=== PATIENT | male | born 1960 | race Caucasian/White ===

== ENCOUNTER → 2016-10-09 | Outpatient (CLI) | payer BC ==
[~2016-10-09] MED LIST: CLARITIN10 MG PO; DOXYCYCLINE MO100 MG PO; LIDEX 0.05% CRE15 GM T; MEDROL DOSEPAK4 MG PO; PREDNISONE10 M1 PO; PROVENTIL0.09 MG/AC IH; VICODIN 5/500 505 MG PO; VICODIN 500 MG-1 TAB PO; ZITHROMAX Z PA250 MG PO
== END | disposition home or self-care (01) ==
LOC: RAD 08:57
DX: J98.4 Other disorders of lung (principal); J98.11 Atelectasis; F17.200 Nicotine dependence, unspecified, uncomplicated

== ENCOUNTER → 2016-10-15 | Outpatient (CLI) | payer BC | END | disposition home or self-care (01) | LOC: CT 10-14 14:00 → LAB 08:47 → CT 09:00 → LAB 09:00 | DX: R91.8 Other nonspecific abnormal finding of lung field (principal); F17.200 Nicotine dependence, unspecified, uncomplicated ==